=== PATIENT | female | born 2000 | race American Indian/Alaskan Native ===

== ENCOUNTER 2019-01-25 13:05 | Emergency (ER) | payer SELFPAY ==
--- NOTE | 2019-01-25 14:13 | Event Note ---
ED Screening Note Date of service: 01/25/19 Time: 14:10 ED Screening Note: Pt complains of lower abdominal pain, back pain, and vaginal bleeding x 3 days. LMP 01/08/19. Pain feels like menstrual cramps. States hx of abnormal menstrual cycle. Denies vaginal discharge or dysuria This initial assessment/diagnostic orders/clinical plan/treatment(s) is/are subject to change based on patients health status, clinical progression and re- assessment by fellow clinical providers in the ED. Further treatment and workup at subsequent clinical providers discretion. Patient/guardian urged not to elope from the ED as their condition may be serious if not clinically assessed and managed. Initial orders include:
--- NOTE | 2019-01-25 15:09 | Ultrasound Report ---
ULTRASOUND TRANSVAGINAL HISTORY: Pelvic pain and abnormal bleeding for 3 days TECHNIQUE: Transvaginal ultrasound imaging with color Doppler interrogation. FINDINGS: The uterus is anteverted and measures 6.2 x 3.3 x 3.8 cm. No uterine mass is identified. Th e endometrial stripe measures 3 mm. No focal abnormality. Normal cervix. The ovaries are normal size, contour and echotexture. The right ovary measures 3.1 x 1.9 x 2.6 cm. Th e left ovary measures 2.5 x 1.2 x 2.1 cm. No adnexal cyst or mass. Trace pelvic fluid appears physiologic. IMPRESSION: No significant abnormality identified. Signer Name: Lazaro Moser Jr, MD Signed: 01/25/2019 3:05 PM Workstation Name: [id number]
[2019-01-25] MEDS ORDERED: IBUPROFEN PO ONE (16:08)
[2019-01-25 16:11] LABS: HCG Qualitative,Urine Negative (Negative)
--- NOTE | 2019-01-25 16:12 | Emergency Department Report ---
ED Female HPI - General Chief complaint: Abdominal Pain Stated complaint: ABD PAIN Time Seen by Provider: 01/25/19 16:06 Source: patient Mode of arrival: Ambulatory Limitations: No Limitations - History of Present Illness Initial comments: 19-year-old -[place] female presents to the emergency room complaining of lower abdominal cramping 3 days and vaginal bleeding 2 days. Patient reports that she took the morning-after pill 3 days ago. Patient reports going through 2 pads on the first day, 3 pads on the second day and has gone through 3 pads today. Patient denies any abnormal vaginal discharge prior to vaginal bleeding. Patient has no past medical history currently takes no medications on a daily basis and has no known drug allergies. MD Complaint: vaginal bleeding Onset/Timin -: days(s) Location: suprapubic Radiation: non-radiating Severity: moderate Severity scale (0 -10): 7 Quality: cramping Consistency: intermittent Improves with: none Worsens with: none Are you Now?: No Last Menstrual Period: 01/10/19 EDC: 10/17/19 Associated Symptoms: denies other symptoms - Related Data Sexually active: Yes : 0 Allergies Allergy/AdvReac Type Severity Reaction Status Date / Time No Known Allergies Allergy Verified 01/25/19 14:11 ED Review of Systems ROS: Stated complaint: ABD PAIN Other details as noted in HPI Comment: All other systems reviewed and negative ED Past Medical Hx - Social History Smoking Status: Never Smoker Substance Use Type: None ED Physical Exam - General Limitations: No Limitations General appearance: alert, in no apparent distress - Head Head exam: Present: atraumatic, normocephalic - Eye Eye exam: Present: normal appearance - ENT ENT exam: Present: mucous membranes moist - Respiratory Respiratory exam: Present: normal lung sounds bilaterally. Absent: respiratory distress - Cardiovascular Cardiovascular Exam: Present: regular rate, normal rhythm. Absent: systolic murmur, diastolic murmur, rubs, gallop - GI/Abdominal GI/Abdominal exam: Present: soft, normal bowel sounds. Absent: distended, tenderness, guarding, rebound - Back Exam Back exam: Present: normal inspection, full ROM - Neurological Exam Neurological exam: Present: alert, oriented X3, normal gait - Psychiatric Psychiatric exam: Present: normal affect, normal mood - Skin Skin exam: Present: warm, dry, intact, normal color. Absent: rash ED Course Vital Signs 01/25/19 14:09 Temperature 98.2 F Pulse Rate 81 Respiratory 16 Rate Blood Pressure 123/79 O2 Sat by Pulse 100 Oximetry ED Medical Decision Making - Medical Decision Making 19-year-old -[place] female presents to the emergency room complaining of lower abdominal cramping 3 days and vaginal bleeding 2 days. Patient reports that she took the morning-after pill 3 days ago. Patient reports going through 2 pads on the first day, 3 pads on the second day and has gone through 3 pads today. Patient denies any abnormal vaginal discharge prior to vaginal bleeding. Patient has no past medical history currently takes no medications on a daily basis and has no known drug allergies. HCG negative Explained to patient this is the side effects of taking the morning-after pill/plan be. Discussed the patient she has further concerns or increased bleeding to follow up with her [employer] [facility]. Return back to the emergency room for reevaluation Critical care attestation.: If time is entered above; I have spent that time in minutes in the direct care of this critically ill patient, excluding procedure time. ED Disposition Clinical Impression: Vagina bleeding Disposition: DC-01 TO HOME OR SELFCARE Is pt being admited?: No Does the pt Need Aspirin: No Condition: Stable Instructions: Levonorgestrel (By mouth), Abdominal Pain (ED) Additional Instructions: Take Tylenol or ibuprofen for cramps. Follow-up with her [employer] provider his symptoms persist or gets worse. Referrals: Rashmi Guy [Other] - 3-5 Days Forms: Work/School Release Form(ED)
[2019-01-25 17:29] VITALS: BP 116/60
== END 2019-01-25 17:28 | disposition home or self-care (01) ==
LOC: ED 13:05
DX: N93.9 Abnormal uterine and vaginal bleeding, unspecified (principal); R10.30 Lower abdominal pain, unspecified
CPT/HCPCS: 76830; 81025